=== PATIENT | male | born 1945 | race Caucasian/White ===

== ENCOUNTER → 2018-01-09 09:42 | Outpatient (CLI) | payer MEDICARE, OTHER, SELFPAY ==
[2018-01-09 10:45] LABS: Uric Acid 6.1 mg/dL (3.5-8.5)
== END ==
PROVIDERS: Visit Provider Podiatrist
DX: G62.9 Polyneuropathy, unspecified (principal); L84 Corns and callosities; M20.41 Other hammer toe(s) (acquired), right foot; S90.222A Contusion of left lesser toe(s) with damage to nail, initial encounter
CPT/HCPCS: 36415; 84550

== ENCOUNTER → 2018-01-11 10:37 | Outpatient (CLI) | payer MEDICARE, OTHER, SELFPAY ==
[2018-01-11 10:59] LABS: Add Manual Diff / Slide Review NO; Basophils Percent Auto 0.7 % (0-2); Hematocrit 41.4 % (41-53); Hemoglobin 14.1 g/dL (13.5-17.5); Lymphocytes Percent Auto 33.7 % (25-40); Mean Corpuscular HGB Conc 34.2 % (30-36); Mean Corpuscular Hemoglobin 30.6 PG (26-34); Mean Corpuscular Volume 89.4 fL (80-100); Monocytes Percent Auto 13.2 % (3-14); Neutrophils Absolute Auto 2700 /uL (3000-5900); Neutrophils Percent Auto 49.4 % (50-75); Platelet Count 259 X10^3/uL (150-400); Red Blood Cell Count 4.63 X10^6/uL (4.5-5.9); Red Cell Distribution Width 14.2 % (11.6-14.8); White Blood Cell Count 5.5 X10^3/uL (4.5-11.0)
[2018-01-11 11:08] LABS: Hemoglobin A1C% w Est Avg Glu 5.5 % (4.0-6.0)
[2018-01-11 11:12] LABS: Chloride 101 mmol/L (98-107); HEMOLYSIS 32 (0-50); Potassium 4.5 mmol/L (3.4-5.1); Sodium 140 mmol/L (137-145)
[2018-01-11 11:21] LABS: Erythrocyte Sedimentation Rate 20 MM/HR (0-15)
[2018-01-11 11:39] LABS: Alanine Aminotransferase 46 IU/L (21-72); Alkaline Phosphatase 52 U/L (38-126); Aspartate Aminotransferase 20 IU/L (17-59); BUN Creatinine Ratio 16.7 (6-22); Bilirubin Total 0.6 mg/dL (0.2-1.3); Blood Urea Nitrogen 15 mg/dL (9-20); Calcium 9.9 mg/dL (8.4-10.2); Carbon Dioxide 29 mmol/L (22-32); Estimated Glomerular Filt Rate > 60.0 mL/min (>60); Glucose 95 mg/dL (80-110)
[2018-01-11 11:46] LABS: Albumin 4.3 g/dL (3.5-5.0); Albumin Globulin Ratio 1.5 (1.0-2.8); Globulin 2.9 g/dL (1.7-4.1)
[2018-01-11 11:48] LABS: Total Protein 7.2 g/dL (6.3-8.2)
== END ==
PROVIDERS: Visit Provider Podiatrist
DX: G62.9 Polyneuropathy, unspecified (principal); L84 Corns and callosities; M20.41 Other hammer toe(s) (acquired), right foot; S90.222A Contusion of left lesser toe(s) with damage to nail, initial encounter; S90.222D Contusion of left lesser toe(s) with damage to nail, subsequent encounter
CPT/HCPCS: 36415; 80053; 83036; 85025; 85651; 87070; 87075; 87077; 87147; 87186; 87205

== ENCOUNTER → 2018-08-19 14:47 | Outpatient (CLI) | payer MEDICARE, OTHER, SELFPAY ==
--- NOTE | 2018-08-19 | DI.RAD.S_ITS ---
PROCEDURE: XR CHEST 2V INDICATIONS: PROLONGED COUGH AND EDEMA TECHNIQUE: 2 views of the chest were acquired. COMPARISON: None. FINDINGS: Surgical changes and devices: None. Lungs and pleura: There are likely small bilateral pleural effusions and atelectasis or consolidation at the bilateral lung bases. There is mild interstitial prominence bilaterally. No pneumothorax. Mediastinum: Mediastinal contours are normal. Heart size is normal. Bones and chest wall: Marked anterior wedging of the mid thoracic spine results in focal, severe kyphosis. Soft tissues appear unremarkable. IMPRESSION: 1. Pleural effusions, basilar atelectasis or consolidation and pulmonary interstitial markings suggesting fluid overload. 2. Severe kyphosis of the midthoracic spine. Dictated by: Evelina Salas M.D. on 08/19/2018 at 15:35 Approved by: Evelina Salas M.D. on 08/19/2018 at 15:36
[2018-08-19 16:09] LABS: Add Manual Diff / Slide Review NO; Basophils Absolute Auto 0 /uL (0-100); Basophils Percent Auto 0.3 % (0-2); Eosinophils Absolute Auto 0 /uL (0-450); Eosinophils Percent Auto 0.4 % (2-4); Hematocrit 40.8 % (41-53); Hemoglobin 13.6 g/dL (13.5-17.5); Lymphocytes Absolute Auto 1900 /uL (1100-4500); Mean Corpuscular HGB Conc 33.3 % (30-36); Mean Corpuscular Hemoglobin 29.7 PG (26-34); Mean Corpuscular Volume 89.1 fL (80-100); Monocytes Absolute Auto 1300 /uL (0-900); Monocytes Percent Auto 11.2 % (3-14); Neutrophils Absolute Auto 8400 /uL (1500-7000); Neutrophils Percent Auto 72.1 % (50-75); Platelet Count 342 X10^3/uL (150-400); Red Blood Cell Count 4.58 X10^6/uL (4.5-5.9); Red Cell Distribution Width 14.9 % (11.6-14.8); White Blood Cell Count 11.7 X10^3/uL (4.5-11.0)
[2018-08-19 16:33] LABS: BUN Creatinine Ratio 17.3 (6-22); Blood Urea Nitrogen 19 mg/dL (9-20); Calcium 9.7 mg/dL (8.4-10.2); Carbon Dioxide 21 mmol/L (22-32); Chloride 92 mmol/L (98-107); Estimated Glomerular Filt Rate > 60.0 mL/min (>60); Glucose 96 mg/dL (80-110); HEMOLYSIS < 15 (0-50); Potassium 5.3 mmol/L (3.4-5.1); Sodium 125 mmol/L (137-145)
== END ==
PROVIDERS: PCP Family Medicine; Visit Provider Family Medicine
DX: R05 Cough (principal); R60.9 Edema, unspecified; J84.9 Interstitial pulmonary disease, unspecified; M40.294 Other kyphosis, thoracic region
CPT/HCPCS: 36415; 71046; 80048; 85025

== ENCOUNTER → 2018-08-29 11:27 | Outpatient (CLI) | payer MEDICARE, OTHER, SELFPAY ==
[2018-08-29 12:24] LABS: BUN Creatinine Ratio 18.3 (6-22); Blood Urea Nitrogen 22 mg/dL (9-20); Calcium 9.2 mg/dL (8.4-10.2); Carbon Dioxide 26 mmol/L (22-32); Chloride 95 mmol/L (98-107); Estimated Glomerular Filt Rate 59.3 mL/min (>60); Glucose 117 mg/dL (80-110); HEMOLYSIS < 15 (0-50); Sodium 134 mmol/L (137-145)
== END ==
PROVIDERS: Visit Provider Internal Medicine
DX: I50.22 Chronic systolic (congestive) heart failure (principal)
CPT/HCPCS: 36415; 80048

== ENCOUNTER → 2018-12-13 13:37 | Outpatient (CLI) | payer MEDICARE, OTHER, SELFPAY ==
[2018-12-13 15:57] LABS: Blood Urea Nitrogen 27 mg/dL (9-20); Calcium 9.6 mg/dL (8.4-10.2); Carbon Dioxide 28 mmol/L (22-32); Chloride 103 mmol/L (98-107); Estimated Glomerular Filt Rate > 60.0 mL/min (>60); Glucose 78 mg/dL (80-110); HEMOLYSIS < 15 (0-50); Potassium 4.1 mmol/L (3.4-5.1); Sodium 139 mmol/L (137-145)
[2018-12-13 16:28] LABS: TSH w/ Reflex to FT4 0.67 uIU/mL (0.47-4.68)
== END ==
DX: I50.22 Chronic systolic (congestive) heart failure (principal); I48.2 Chronic atrial fibrillation
CPT/HCPCS: 36415; 80048; 84443

== ENCOUNTER → 2019-06-27 13:31 | Outpatient (CLI) | payer MEDICARE, OTHER, SELFPAY ==
[2019-06-27 13:59] LABS: Hematocrit 41.8 % (41-53); Hemoglobin 14.3 g/dL (13.5-17.5); Mean Corpuscular HGB Conc 34.2 % (30-36); Mean Corpuscular Hemoglobin 31.8 PG (26-34); Mean Corpuscular Volume 92.9 fL (80-100); Platelet Count 220 X10^3/uL (150-400); Red Blood Cell Count 4.49 X10^6/uL (4.5-5.9); Red Cell Distribution Width 13.4 % (11.6-14.8); White Blood Cell Count 6.1 X10^3/uL (4.5-11.0)
[2019-06-27 15:55] LABS: Alanine Aminotransferase 20 IU/L (<50); Albumin 4.2 g/dL (3.5-5.0); Albumin Globulin Ratio 1.7 (1.0-2.8); Alkaline Phosphatase 31 U/L (38-126); Aspartate Aminotransferase 25 IU/L (17-59); Bilirubin Total 0.9 mg/dL (0.2-1.3); Blood Urea Nitrogen 25 mg/dL (9-20); Calcium 10.1 mg/dL (8.4-10.2); Carbon Dioxide 28 mmol/L (22-32); Chloride 103 mmol/L (98-107); Estimated Glomerular Filt Rate > 60.0 mL/min (>60); Globulin 2.5 g/dL (1.7-4.1); Glucose 91 mg/dL (80-110); HEMOLYSIS < 15 (0-50); Potassium 4.4 mmol/L (3.4-5.1); Sodium 138 mmol/L (137-145); Total Protein 6.7 g/dL (6.3-8.2)
== END ==
PROVIDERS: Visit Provider Nurse Practitioner
DX: I50.22 Chronic systolic (congestive) heart failure (principal); I42.8 Other cardiomyopathies; Z79.01 Long term (current) use of anticoagulants
CPT/HCPCS: 36415; 80053; 85027

== ENCOUNTER → 2019-07-18 11:02 | Outpatient (CLI) | payer MEDICARE, OTHER, SELFPAY ==
[2019-07-18 12:50] LABS: Hemoglobin A1C% w Est Avg Glu 5.2 % (4.0-6.0)
[2019-07-18 13:09] LABS: Cortisol Random 8.16 ug/dL; Prostate Specific Antigen 1.24 ng/mL (0.10-4.00)
[2019-07-18 13:20] LABS: Thyroid Stimulating Hormone 0.69 uIU/mL (0.47-4.68)
[2019-07-22 12:51] LABS: Dehydroepiandrosterone Sulfate 181 mcg/dL (5-253)
== END ==
PROVIDERS: Visit Provider Family Medicine
DX: I42.9 Cardiomyopathy, unspecified (principal); I48.19 Other persistent atrial fibrillation; I50.20 Unspecified systolic (congestive) heart failure; I95.2 Hypotension due to drugs; N40.1 Benign prostatic hyperplasia with lower urinary tract symptoms; E11.9 Type 2 diabetes mellitus without complications
CPT/HCPCS: 36415; 82533; 82627; 83036; 84153; 84403; 84443

== ENCOUNTER → 2020-05-14 15:02 | Outpatient (CLI) | payer MEDICARE, OTHER, SELFPAY ==
[2020-05-14 16:45] LABS: Add Manual Diff / Slide Review NO; Basophils Absolute Auto 0 /uL (0-100); Basophils Percent Auto 0.7 % (0-2); Eosinophils Absolute Auto 100 /uL (0-450); Eosinophils Percent Auto 2.3 % (2-4); Hematocrit 43.1 % (41-53); Hemoglobin 15.1 g/dL (13.5-17.5); Lymphocytes Absolute Auto 2000 /uL (1100-4500); Lymphocytes Percent Auto 32.9 % (25-40); Mean Corpuscular HGB Conc 35.1 % (30-36); Mean Corpuscular Hemoglobin 32.5 PG (26-34); Mean Corpuscular Volume 92.5 fL (80-100); Monocytes Absolute Auto 600 /uL (0-900); Monocytes Percent Auto 9.5 % (3-14); Neutrophils Absolute Auto 3300 /uL (1500-7000); Neutrophils Percent Auto 54.6 % (50-75); Platelet Count 223 X10^3/uL (150-400); Red Blood Cell Count 4.66 X10^6/uL (4.5-5.9)
[2020-05-14 19:17] LABS: Alanine Aminotransferase 17 IU/L (<50); Albumin 4.6 g/dL (3.5-5.0); Albumin Globulin Ratio 1.8 (1.0-2.8); Alkaline Phosphatase 41 U/L (38-126); Aspartate Aminotransferase 15 IU/L (17-59); BUN Creatinine Ratio 23.5 (6-22); Bilirubin Total 0.8 mg/dL (0.2-1.3); Blood Urea Nitrogen 27 mg/dL (9-20); Calcium 10.1 mg/dL (8.4-10.2); Carbon Dioxide 30 mmol/L (22-32); Chloride 101 mmol/L (98-107); Estimated Glomerular Filt Rate > 60.0 mL/min (>60); Globulin 2.5 g/dL (1.7-4.1); Glucose 87 mg/dL (80-110); HEMOLYSIS < 15 (0-50); Magnesium 2.3 mg/dL (1.6-2.3); Potassium 5.1 mmol/L (3.4-5.1); Sodium 138 mmol/L (137-145); Total Protein 7.1 g/dL (6.3-8.2)
== END ==
PROVIDERS: Referring Provider Family Medicine; Visit Provider Family Medicine
DX: I50.22 Chronic systolic (congestive) heart failure (principal); I48.20 Chronic atrial fibrillation, unspecified
CPT/HCPCS: 36415; 80053; 83735; 85025

== ENCOUNTER → 2020-09-08 16:33 | Outpatient (CLI) | payer MEDICARE, OTHER, SELFPAY ==
[2020-09-08 18:16] LABS: Fibrinogen 268 mg/dL (211-428); INR 1.2 (0.9-1.3); Prothrombin Time 14.3 SECONDS (10.1-12.7)
[2020-09-08 18:18] LABS: PTT Partial Thromboplastin Tim 32 SECONDS (26.4-36.2)
[2020-09-08 18:24] LABS: Add Manual Diff / Slide Review NO; Basophils Absolute Auto 0 /uL (0-100); Basophils Percent Auto 0.7 % (0-2); Eosinophils Absolute Auto 200 /uL (0-450); Eosinophils Percent Auto 3.1 % (2-4); Hemoglobin 14.1 g/dL (13.5-17.5); Lymphocytes Absolute Auto 1900 /uL (1100-4500); Lymphocytes Percent Auto 28.7 % (25-40); Mean Corpuscular HGB Conc 34.4 % (30-36); Mean Corpuscular Hemoglobin 31.7 PG (26-34); Mean Corpuscular Volume 92.4 fL (80-100); Monocytes Absolute Auto 700 /uL (0-900); Monocytes Percent Auto 10.8 % (3-14); Neutrophils Absolute Auto 3700 /uL (1500-7000); Neutrophils Percent Auto 56.7 % (50-75); Platelet Count 229 X10^3/uL (150-400); Red Blood Cell Count 4.44 X10^6/uL (4.5-5.9); Red Cell Distribution Width 13.9 % (11.6-14.8); White Blood Cell Count 6.5 X10^3/uL (4.5-11.0)
[2020-09-08 18:39] LABS: Alanine Aminotransferase 17 IU/L (<50); Albumin 4.2 g/dL (3.5-5.0); Albumin Globulin Ratio 1.6 (1.0-2.8); Alkaline Phosphatase 33 U/L (38-126); Aspartate Aminotransferase 22 IU/L (17-59); BUN Creatinine Ratio 20.8 (6-22); Bilirubin Total 0.6 mg/dL (0.2-1.3); Blood Urea Nitrogen 25 mg/dL (9-20); Calcium 9.9 mg/dL (8.4-10.2); Carbon Dioxide 27 mmol/L (22-32); Chloride 102 mmol/L (98-107); Globulin 2.6 g/dL (1.7-4.1); Glucose 88 mg/dL (80-110); HEMOLYSIS < 15 (0-50); Lactate Dehydrogenase 304 U/L (313-618); Potassium 4.3 mmol/L (3.4-5.1); Sodium 133 mmol/L (137-145); Total Protein 6.8 g/dL (6.3-8.2)
[2020-09-08 18:41] LABS: Hemoglobin A1C% w Est Avg Glu 5.2 % (4.0-6.0)
[2020-09-08 18:48] LABS: High Sensitivity CRP - Cardiac 0.4 mg/L (1.0-3.0); Prealbumin 27.5 mg/dL (17.6-36.0)
[2020-09-08 18:56] LABS: Free T3, Triiodothyronine Free 2.94 pg/mL (2.77-5.27); Free T4, Direct Thyroxine 1.13 ng/dL (0.78-2.19)
[2020-09-08 19:07] LABS: Estradiol, Total 30.5 pg/mL
[2020-09-08 19:09] LABS: Erythrocyte Sedimentation Rate 3 MM/HR (0-15); Thyroid Stimulating Hormone 0.561 uIU/mL (0.47-4.68)
[2020-09-08 19:11] LABS: Ferritin 70 ng/mL (18-464)
[2020-09-08 20:35] LABS: Vitamin D 25 Hydroxy (D3) 90.2 ng/mL (30.0-100.0)
[2020-09-10 04:51] LABS: Homocysteine 14.1 umol/L (0.0-19.2)
[2020-09-10 05:46] LABS: Sex Hormone Binding Globulin 70.3 nmol/L (19.3-76.4)
[2020-09-15 04:36] LABS: Testosterone % Fr + Wkly bound 12.8 % (9.0-46.0); Testosterone Fr+Wkly bound 40.4 ng/dL (40.0-250.0); Testosterone, Total 315.3 ng/dL (264.0-916.0)
== END ==
PROVIDERS: Referring Provider Preventive Medicine Public Health & General Preventive Medicine; Visit Provider Preventive Medicine Public Health & General Preventive Medicine
DX: I49.9 Cardiac arrhythmia, unspecified (principal); E34.9 Endocrine disorder, unspecified; R79.1 Abnormal coagulation profile; M19.93 Secondary osteoarthritis, unspecified site; E03.8 Other specified hypothyroidism; N40.0 Benign prostatic hyperplasia without lower urinary tract symptoms; R53.83 Other fatigue
CPT/HCPCS: 36415; 80053; 82306; 82627; 82670; 82728; 83036; 83090; 83615; 84134; 84153; 84270; 84403; 84439; 84443; 84481; 85025; 85384; 85610; 85651; 85730; 86140

== ENCOUNTER → 2021-04-19 15:45 | Outpatient (CLI) | payer MEDICARE, OTHER, SELFPAY ==
--- NOTE | 2021-04-19 | DI.MRI.S_ITS ---
PROCEDURE: MR KNEE LT WO CON INDICATIONS: Pain in left knee TECHNIQUE: Noncontrast sagittal PD fast spin echo and T2 fast spin echo with fat saturation, sagittal 3-D FLASH with fat saturation; coronal T1 spin echo and PD fast spin echo with fat saturation, and axial PD fast spin echo with fat saturation through the knee. COMPARISON: None. FINDINGS: Menisci: Medial meniscus: Ill-defined tear involving the posterior horn and body with partial extrusion. Abnormal signal extends to the undersurface and there is marked truncation of the free margin Lateral meniscus: Macerated circumferential tear involving the anterior horn, body and posterior horn. There is near complete extrusion. Cruciate ligaments: Anterior cruciate ligament: Intact. Posterior cruciate ligament: Intact. Medial structures: The medial collateral ligament: There is medial bowing of the medial collateral ligament, with mild internal signal changes and no complete rupture. There is adjacent soft tissue edema. The appearance could reflect reactive changes to medial compartment pathology, versus low-grade sprain of the MCL. Semimembranosus tendon: Insertional tendinopathy and thickening. Visualized pes anserinus tendons: Intact. Bursal fluid: none. Lateral structures: The lateral collateral ligament demonstrates thickening and intrasubstance signal change in keeping with low grade sprain, statistically chronic, although technically age indeterminate. Biceps femoris tendon appears intact. Popliteus tendon grossly unremarkable. Iliotibial band appears intact. Anterior structures: Quadriceps tendon: Distal tendinopathy and thickening. Medial patellofemoral ligament: Intact. Lateral patellofemoral ligament: Partial-thickness tear of the patellar attachment. There is marked thickening and background intrasubstance signal changes. Patellar tendon: Mild tendinopathy. Anterior soft tissues: Prepatellar and superficial infrapatellar subcutaneous edema/fluid. Deep infrapatellar region: Normal. Bones and cartilage: Marrow: No focal marrow contusion or discrete low signal fracture line. Degenerative cystic change present at the base of the tibial eminence. Medial compartment: Diffuse partial-thickness loss of the femoral cartilage. No definite focal tibial cartilage defect. Lateral compartment: Diffuse partial-thickness loss of the tibial cartilage. Surface fraying partial-thickness loss of the central weight-bearing femoral cartilage. Patellofemoral compartment: Diffuse partial-thickness loss of the patellar cartilage. Surface fraying of the femoral trochlear cartilage. Partial-thickness loss of the posterior non weight-bearing cartilage of the medial femoral condyle also noted on axial pulse sequences. Joint space: Effusion: Moderate joint effusion Popliteal fossa: Small 1 cm Leo's cyst. Multiloculated posterior ganglion at the tibiofibular articulation. For example image 02/04. Loose bodies: None. IMPRESSION: Medial meniscal tear with partial extrusion. Adjacent MCL changes as above. Lateral meniscal circumferential macerated tear with near complete extrusion. Quadriceps and patellar tendinopathy with adjacent fluid and edema. Partial rupture of the lateral patellofemoral ligament. Moderate joint effusion Small Leo's cyst Posterior ganglion cyst at the proximal tibiofibular articulation. Dictated by: Rory Walls M.D. on 04/20/2021 at 9:01 Approved by: Rory Walls M.D. on 04/20/2021 at 9:11
== END ==
PROVIDERS: Referring Provider Family Medicine; Visit Provider Family Medicine
DX: M25.562 Pain in left knee (principal); S83.242A Other tear of medial meniscus, current injury, left knee, initial encounter; S83.282A Other tear of lateral meniscus, current injury, left knee, initial encounter; S86.812A Strain of other muscle(s) and tendon(s) at lower leg level, left leg, initial encounter; M25.462 Effusion, left knee; M71.22 Synovial cyst of popliteal space [Baker], left knee
CPT/HCPCS: 73721

== ENCOUNTER → 2021-07-13 13:12 | Outpatient (CLI) | payer MEDICARE, OTHER, SELFPAY ==
[2021-07-13 14:19] LABS: Add Manual Diff / Slide Review NO; Basophils Absolute Auto 0 /uL (0-100); Basophils Percent Auto 0.7 % (0-2); Eosinophils Absolute Auto 100 /uL (0-450); Hematocrit 41.8 % (41-53); Hemoglobin 14.2 g/dL (13.5-17.5); Lymphocytes Absolute Auto 1800 /uL (1100-4500); Lymphocytes Percent Auto 30.2 % (25-40); Mean Corpuscular HGB Conc 33.9 % (30-36); Mean Corpuscular Hemoglobin 30.8 PG (26-34); Mean Corpuscular Volume 90.9 fL (80-100); Monocytes Absolute Auto 600 /uL (0-900); Monocytes Percent Auto 10.1 % (3-14); Neutrophils Absolute Auto 3300 /uL (1500-7000); Platelet Count 263 X10^3/uL (150-400); Red Cell Distribution Width 14.3 % (11.6-14.8); White Blood Cell Count 5.9 X10^3/uL (4.5-11.0)
[2021-07-13 14:42] LABS: Alanine Aminotransferase 19 IU/L (<50); Albumin 4.4 g/dL (3.5-5.0); Albumin Globulin Ratio 1.9 (1.0-2.8); Alkaline Phosphatase 36 U/L (38-126); Aspartate Aminotransferase 21 IU/L (17-59); BUN Creatinine Ratio 18.2 (6-22); Bilirubin Total 0.8 mg/dL (0.2-1.3); Blood Urea Nitrogen 20 mg/dL (9-20); Carbon Dioxide 26 mmol/L (22-32); Chloride 101 mmol/L (98-107); Cholesterol 181 mg/dL (140-199); Estimated Glomerular Filt Rate > 60.0 mL/min (>60); Globulin 2.3 g/dL (1.7-4.1); Glucose 101 mg/dL (80-110); HDL Cholesterol 67 mg/dL (40-60); HEMOLYSIS < 15 (0-50); LDL Cholesterol Calculated 105 mg/dL (<100); Magnesium 2.1 mg/dL (1.6-2.3); Potassium 4.7 mmol/L (3.4-5.1); Sodium 135 mmol/L (137-145); Total Protein 6.7 g/dL (6.3-8.2); Triglycerides 44 mg/dL (35-150)
[2021-07-13 15:08] LABS: Thyroid Stimulating Hormone 0.928 uIU/mL (0.47-4.68)
[2021-07-13 15:10] LABS: Prostate Specific Antigen 1.68 ng/mL (0.10-4.00)
[2021-07-13 15:46] LABS: Folate > 20.0 ng/mL (2.76-20.0); Vitamin B12 939 pg/mL (239-931)
[2021-07-13 19:43] LABS: Vitamin D 25 Hydroxy (D3) 87.5 ng/mL (30.0-100.0)
== END ==
PROVIDERS: PCP Family Medicine; Referring Provider Family Medicine; Visit Provider Family Medicine
DX: I42.6 Alcoholic cardiomyopathy (principal); I48.20 Chronic atrial fibrillation, unspecified; N40.0 Benign prostatic hyperplasia without lower urinary tract symptoms; E78.5 Hyperlipidemia, unspecified; E55.9 Vitamin D deficiency, unspecified
CPT/HCPCS: 36415; 80053; 80061; 82306; 82607; 82746; 83735; 84153; 84443; 85025

== ENCOUNTER → 2021-11-15 08:56 | Outpatient (CLI) | payer MEDICARE, OTHER, SELFPAY ==
[2021-11-15 12:39] LABS: Testosterone 405 ng/dL (71.8-623)
== END ==
PROVIDERS: PCP Family Medicine; Referring Provider Family Medicine; Visit Provider Family Medicine
DX: E29.1 Testicular hypofunction (principal)
CPT/HCPCS: 36415; 84403

== ENCOUNTER → 2021-11-16 08:54 | Outpatient (CLI) | payer MEDICARE, OTHER, SELFPAY ==
[2021-11-16 10:32] LABS: Testosterone 340 ng/dL (71.8-623)
== END ==
PROVIDERS: PCP Family Medicine; Referring Provider Family Medicine; Visit Provider Family Medicine
DX: E29.1 Testicular hypofunction (principal)
CPT/HCPCS: 36415; 84403

== ENCOUNTER 2021-11-21 14:17 | Emergency (ER) | payer MEDICARE, OTHER, SELFPAY ==
[2021-11-21 14:24] VITALS: PULSE 94; RESP 20; TEMP 36.6; O2SAT 99
--- NOTE | 2021-11-21 14:29 | DI.RAD.S_ITS ---
PROCEDURE: XR KNEE RT 3V INDICATIONS: pain TECHNIQUE: 3 views of the knee were acquired. COMPARISON: None. FINDINGS: Bones: No fractures or dislocations. No suspicious bony lesions. There is mild femorotibial compartment narrowing and small tricompartmental osteophytes. There is a patellar enthesophyte. Soft tissues: No joint effusion. No suspicious soft tissue calcifications. IMPRESSION: Degenerative change. No acute radiographic findings. Dictated by: Evelina Salas M.D. on 11/21/2021 at 15:13 Approved by: Evelina Salas M.D. on 11/21/2021 at 15:14
[2021-11-21 18:10] LABS: Add Manual Diff / Slide Review NO; Basophils Absolute Auto 0 /uL (0-100); Basophils Percent Auto 0.5 % (0-2); Eosinophils Absolute Auto 100 /uL (0-450); Eosinophils Percent Auto 1.4 % (2-4); Hemoglobin 13.7 g/dL (13.5-17.5); Lymphocytes Absolute Auto 1500 /uL (1100-4500); Lymphocytes Percent Auto 18.2 % (25-40); Mean Corpuscular HGB Conc 34.3 % (30-36); Mean Corpuscular Hemoglobin 31.2 PG (26-34); Mean Corpuscular Volume 90.7 fL (80-100); Monocytes Absolute Auto 1000 /uL (0-900); Monocytes Percent Auto 13.1 % (3-14); Neutrophils Absolute Auto 5300 /uL (1500-7000); Neutrophils Percent Auto 66.8 % (50-75); Platelet Count 199 X10^3/uL (150-400); Red Blood Cell Count 4.41 X10^6/uL (4.5-5.9); Red Cell Distribution Width 13.9 % (11.6-14.8)
[2021-11-21 18:29] LABS: Alanine Aminotransferase 20 IU/L (<50); Albumin 4.5 g/dL (3.5-5.0); Albumin Globulin Ratio 1.6 (1.0-2.8); Alkaline Phosphatase 36 U/L (38-126); Aspartate Aminotransferase 25 IU/L (17-59); Blood Urea Nitrogen 22 mg/dL (9-20); Calcium 9.4 mg/dL (8.4-10.2); Carbon Dioxide 25 mmol/L (22-32); Chloride 101 mmol/L (98-107); Estimated Glomerular Filt Rate > 60 mL/min (>60); Globulin 2.9 g/dL (1.7-4.1); Glucose 88 mg/dL (80-110); HEMOLYSIS < 15 (0-50); Sodium 135 mmol/L (137-145); Total Protein 7.4 g/dL (6.3-8.2)
[2021-11-21] MEDS: ACETAMINOPHEN 325 MG TABLET 975 MG PO (18:29)
[2021-11-21 18:36] LABS: NT-proBNP (BNP-Adult 18+) 1600 pg/mL (<450)
[2021-11-21 18:44] LABS: Procalcitonin 0.05 ng/mL (<0.5)
[2021-11-21 18:48] LABS: Appearance Urine UA Slightly Cloudy; Bilirubin Urine UA NEGATIVE (NEGATIVE); Color Urine UA YELLOW; Glucose Urine UA NEGATIVE (Negative); Ketones Urine UA NEGATIVE (NEGATIVE); Leukocyte Esterase Urine UA 3+ (NEGATIVE); Nitrite Urine UA NEGATIVE (Negative); Occult Blood Urine UA TRACE-LYSED (Negative); Protein Urine UA NEGATIVE (Negative); Specific Gravity Urine UA <=1.005 (1.000-1.035); Urobilinogen Urine UA 0.2 E.U./dL (0.2)
[2021-11-21 18:54] LABS: COVID19 -Nasal RAPID Negative (Negative)
[2021-11-21 18:56] LABS: Bacteria Urine Few (2-10); Culture Indicated Urine Specimen Cultured; RBC Urine 0-1/HPF (0-5/HPF); Squamous Epithelial Cell Urine 0-1 /HPF (0-5/HPF); WBC Urine 10-30/HPF (0-5/HPF)
[2021-11-21] MEDS: TRIMETH/SULFA 160/800 (DS) TABLET 1 TAB PO (19:02)
[2021-11-21 19:22] VITALS: BP 158/78; PULSE 80; RESP 18; O2SAT 99
--- NOTE | 2021-11-21 20:32 | ED.LOWEXIN ---
HPI - Extremity Injury (Lower) <Kimmy Roblero, [facility] - Last Filed: 11/21/21 20:43> General Chief Complaint: Extremity Injury, Lower Stated Complaint: Wants MRI on knee and labs Time Seen by Provider: 11/21/21 16:48 Source: patient Mode of arrival: Ambulatory History of Present Illness HPI Narrative: This a 76-year-old male with history of AFib on Xarelto, CHF, and some arthritis in his bilateral knees which have been bothering him for some time. Patient presents to the emergency department today for feeling of wobbly knees yesterday when he was out for a walk, he states felt unsteady and had to sit write down. He states that he felt tired and weak, which is abnormal for him. He denies having a fever, states that he was up frequently last night to urinate, complains of ongoing knee pain but no known injury. He denies any isolated weakness, states that he takes multiple antihypertensives for his heart, maybe he had some low blood pressure yesterday. Patient states that he does not normally urinate as frequently as he did last night, he states he feels tired today, denies any abdominal pain or back pain, denies any fever, or generalized weakness. He states that his knees feeling wobbly was more yesterday than it is today but he has surgery for an inguinal hernia coming [place] [address] Choi and he wanted to make sure that he was safe for this because he did not feel right. Related Data Home Medications Medication Instructions Recorded Confirmed metoprolol succinate 25 mg 25 mg PO BID 11/22/21 11/22/21 tablet,extended release 24 hr rivaroxaban 20 mg tablet (Xarelto) 20 mg PO DAILY 11/22/21 11/22/21 sacubitril 24 mg-valsartan 26 mg 1 tab PO BID 11/22/21 11/22/21 tablet (Entresto) Previous Rx's Medication Instructions Recorded diclofenac sodium 1 % topical gel 2 g TOPICAL QID PRN #100 g 11/21/21 (Voltaren Arthritis Pain) sulfamethoxazole 800 1 tab PO BID 5 Days #10 tab 11/21/21 mg-trimethoprim 160 mg tablet (Bactrim DS) Allergies Allergy/AdvReac Type Severity Reaction Status Date / Time No Known Drug Allergies Allergy Unverified 11/03/21 15:48 Review of Systems <ASYA Torres - Last Filed: 11/21/21 20:43> Review of Systems Narrative: General: denies fever, chills, malaise, sweats, fatigue Head/Neck: denies headache, neck pain, dizziness Eyes: denies visual changes, eye pain Cardio: denies chest pain, palpitations, edema Respiratory: denies dyspnea, cough, orthopnea GI: denies abdominal pain, nausea, vomiting, or diarrhea : denies dysuria, hematuria, urinary retention, endorses urinary frequency, denies any incontinence MSK: Complains of bilateral knee pain, right greater than left, denies any muscle weakness Skin: denies rash, itching, skin lesions or other Neuro: denies numbness, tingling Patient History <ASYA Torres - Last Filed: 11/21/21 20:43> Medical History (Updated 11/22/21 @ 08:31 by Ramona Downey RN) Afib Congestive heart failure Enlarged prostate Hernia Skin cancer Surgical History (Updated 11/22/21 @ 08:37 by Ramona Downey RN) History of appendectomy (1967) History of hernia surgery (1949) Family History Father Heart disease Sister Breast cancer Mother Melanoma Social History marital status: household members: spouse lives independently: Yes Smoking Status: Never smoker alcohol intake: current Smoking Status: Never smoker Exam <ASYA Torres - Last Filed: 11/21/21 20:43> Narrative Exam Narrative: Independently reviewed vitals signs and nursing notes. General: cooperative, comfortable, in no acute distress, well developed and well groomed, pleasant, tall, ambulatory with wheelchair or walker without difficulty Head: atraumatic, symmetrical facial expressions Neck: supple, atraumatic, without lymphadenopathy. Eyes: pupils equal round and reactive, EOMI, conjunctiva normal Nose: nares patent, no rhinorrhea Mouth/Throat: uvula midline, moist mucus membranes Cardiovascular: regular rate and rhythm, no peripheral edema, warm extremities Respiratory: normal effort, able to speak in complete sentences, no audible wheezing, stridor, or rales. No retractions or tachypnea. GI: abdomen soft, nontender to palpation, nondistended, no masses, no exquisite tenderness with exam, without guarding or rebound. MSK: moves all extremities, ambulatory w/steady gait, neurovascularly intact, no weakness, no dependent edema, no obvious knee effusion or injury, no wounds Skin: brisk capillary refill, no rash, no erythema Neuro: normal speech and cognition, A&O x3, normal tone Psych: mental status is grossly normal, congruent mood, normal affect, pleasant and cooperative Initial Vital Signs Initial Vital Signs: Vital Signs Temperature 97.8 F 11/21/21 14:24 Pulse Rate 94 H 11/21/21 14:24 Respiratory Rate 20 11/21/21 14:24 Pulse Oximetry 99 11/21/21 14:24 <Ronit Newman DO - Last Filed: 11/22/21 19:38> Initial Vital Signs Initial Vital Signs: Vital Signs Temperature 97.8 F 11/21/21 14:24 Pulse Rate 94 H 11/21/21 14:24 Respiratory Rate 20 11/21/21 14:24 Pulse Oximetry 99 11/21/21 14:24 Course <ASYA Torres - Last Filed: 11/21/21 20:43> Orders Ordered: Discontinued Medications Acetaminophen (Acetaminophen 325 Mg Tablet) 975 mg PO NOW ONE Stop: 11/21/21 17:18 Last Admin: 11/21/21 18:29 Dose: 975 mg Documented by: HARPER Trimethoprim/Sulfamethoxazole (Trimeth/Sulfa 160/800 (Ds) Tablet) 1 tab PO NOW ONE Stop: 11/21/21 18:55 Last Admin: 11/21/21 19:02 Dose: 1 tab Documented by: FARHAN Vital Signs Vital signs: Vital Signs - 8 hr 11/21/21 14:24 11/21/21 19:22 Temperature 97.8 F Pulse Rate 94 H 80 Respiratory Rate 20 18 Blood Pressure 158/78 H Pulse Oximetry 99 99 <Ronit Newman DO - Last Filed: 11/22/21 19:38> Orders Ordered: Discontinued Medications Acetaminophen (Acetaminophen 325 Mg Tablet) 975 mg PO NOW ONE Stop: 11/21/21 17:18 Last Admin: 11/21/21 18:29 Dose: 975 mg Documented by: HARPER Trimethoprim/Sulfamethoxazole (Trimeth/Sulfa 160/800 (Ds) Tablet) 1 tab PO NOW ONE Stop: 11/21/21 18:55 Last Admin: 11/21/21 19:02 Dose: 1 tab Documented by: FARHAN Vital Signs Vital signs: Vital Signs - 8 hr 11/21/21 14:24 11/21/21 19:22 Temperature 97.8 F Pulse Rate 94 H 80 Respiratory Rate 20 18 Blood Pressure 158/78 H Pulse Oximetry 99 99 MDM - Extremity Injury (Lower) <Kimmy Roblero, [facility] - Last Filed: 11/21/21 20:43> Lab Data Result diagrams: 11/21/21 18:00 11/21/21 18:00 Labs: Lab Results 11/21/21 11/21/21 11/21/21 Range/Units 18:00 18:00 18:00 WBC 8.0 (4.5-11.0) X10^3/uL RBC 4.41 L (4.5-5.9) X10^6/uL Hgb 13.7 (13.5-17.5) g/dL Hct 40.0 L (41-53) % MCV 90.7 (80-100) fL MCH 31.2 (26-34) PG MCHC 34.3 (30-36) % RDW 13.9 (11.6-14.8) % Plt Count 199 (150-400) X10^3/uL Neut % (Auto) 66.8 (50-75) % Lymph % (Auto) 18.2 L (25-40) % [place] % (Auto) 13.1 (3-14) % Eos % (Auto) 1.4 L (2-4) % Baso % (Auto) 0.5 (0-2) % Neut # (Auto) 5300 (8465-7664) /uL Lymph # (Auto) 1500 (1072-4212) /uL [place] # (Auto) 1000 H (0-900) /uL Eos # (Auto) 100 (0-450) /uL Baso # (Auto) 0 (0-100) /uL Sodium 135 L (137-145) mmol/L Potassium 4.0 (3.4-5.1) mmol/L Chloride 101 (98-107) mmol/L Carbon Dioxide 25 (22-32) mmol/L BUN 22 H (9-20) mg/dL Creatinine 1.05 (0.66-1.25) mg/dL Estimated GFR > 60 (>60) mL/min BUN/Creatinine Ratio 21.0 (6-22) Glucose 88 (80-110) mg/dL Calcium 9.4 (8.4-10.2) mg/dL Total Bilirubin 1.0 (0.2-1.3) mg/dL AST 25 (17-59) IU/L ALT 20 (<50) IU/L Alkaline Phosphatase 36 L (38-126) U/L NT-Pro-B Natriuret Pep 1600 H (<450) pg/mL Total Protein 7.4 (6.3-8.2) g/dL Albumin 4.5 (3.5-5.0) g/dL Globulin 2.9 (1.7-4.1) g/dL Albumin/Globulin Ratio 1.6 (1.0-2.8) Procalcitonin 0.05 (<0.5) ng/mL Urine Color Urine Appearance Urine pH (4.5-8.0) Ur Specific [place] (1.000-1.035) Urine Protein (Negative) Urine Glucose (UA) (Negative) g/dL Urine Ketones (NEGATIVE) Urine Occult Blood (Negative) Urine Nitrate (Negative) Urine Bilirubin (NEGATIVE) Urine Urobilinogen (0.2) E.U./dL Ur Leukocyte Esterase (NEGATIVE) Urine RBC (0-5/HPF) Urine WBC (0-5/HPF) Ur Squamous Epith Cells (0-5/HPF) Urine Bacteria (None) Ur Culture Indicated? SARS-CoV-2 (PCR) (Negative) 11/21/21 11/21/21 Range/Units 18:04 18:04 WBC (4.5-11.0) X10^3/uL RBC (4.5-5.9) X10^6/uL Hgb (13.5-17.5) g/dL Hct (41-53) % MCV (80-100) fL MCH (26-34) PG MCHC (30-36) % RDW (11.6-14.8) % Plt Count (150-400) X10^3/uL Neut % (Auto) (50-75) % Lymph % (Auto) (25-40) % [place] % (Auto) (3-14) % Eos % (Auto) (2-4) % Baso % (Auto) (0-2) % Neut # (Auto) (6174-9439) /uL Lymph # (Auto) (2178-7608) /uL [place] # (Auto) (0-900) /uL Eos # (Auto) (0-450) /uL Baso # (Auto) (0-100) /uL Sodium (137-145) mmol/L Potassium (3.4-5.1) mmol/L Chloride (98-107) mmol/L Carbon Dioxide (22-32) mmol/L BUN (9-20) mg/dL Creatinine (0.66-1.25) mg/dL Estimated GFR (>60) mL/min BUN/Creatinine Ratio (6-22) Glucose (80-110) mg/dL Calcium (8.4-10.2) mg/dL Total Bilirubin (0.2-1.3) mg/dL AST (17-59) IU/L ALT (<50) IU/L Alkaline Phosphatase (38-126) U/L NT-Pro-B Natriuret Pep (<450) pg/mL Total Protein (6.3-8.2) g/dL Albumin (3.5-5.0) g/dL Globulin (1.7-4.1) g/dL Albumin/Globulin Ratio (1.0-2.8) Procalcitonin (<0.5) ng/mL Urine Color Yellow Urine Appearance Slightly cloudy Urine pH 6.0 (4.5-8.0) Ur Specific [place] <=1.005 (1.000-1.035) Urine Protein Negative (Negative) Urine Glucose (UA) Negative (Negative) g/dL Urine Ketones Negative (NEGATIVE) Urine Occult Blood Trace-lysed (Negative) Urine Nitrate Negative (Negative) Urine Bilirubin Negative (NEGATIVE) Urine Urobilinogen 0.2 (0.2) E.U./dL Ur Leukocyte Esterase 3+ H (NEGATIVE) Urine RBC 0-1/hpf (0-5/HPF) Urine WBC 10-30/hpf H (0-5/HPF) Ur Squamous Epith Cells 0-1 /hpf (0-5/HPF) Urine Bacteria Few (2-10) H (None) Ur Culture Indicated? Specimen cultured SARS-CoV-2 (PCR) Negative (Negative) ECG Data Interpretation: EKG independently reviewed by myself and Dr. Beavers which shows ventricular rate of 92 beats per minute, atrial fibrillation regular axis and intervals. No STEMI, ST segment changes, arrhythmia, or acute ischemic changes. MDM Narrative Medical decision making narrative: This is a pleasant 76-year-old gentleman with history of AFib on Xarelto, CHF, on antihypertensives, who presents to the emergency department today with feeling of unsteadiness when he was walking yesterday and had to sit down. He has a history of osteoarthritis in his bilateral knees and thought it was due to this. When discussing this further with the patient, he states that he was up frequently urinating last night and has been feeling tired today and a little bit less energetic than usual. Opted to do lab work and check his urine for infection as he has inguinal hernia surgery scheduled in [address] Choi. He is tolerating p.o., was given water to hydrate and tolerated this well. He does not have any leukocytosis on his lab work, sodium was 135, he was asymptomatic from this from a neuro changes standpoint, BNP was elevated to 1600 without any priors to compare to, patient did not have any significant dyspnea or orthopnea complaints. They told me that he has a history of CHF and that he takes a water pill. Urine shows 3+ leukocyte esterase with few bacteria it was cultured and it is pending. His COVID test today is negative. This is most likely UTI, he does not have any back pain or CVA tenderness on exam, he is afebrile, without any nausea vomiting. Patient was given Bactrim in the emergency department, tolerated p.o., was given strict return precautions for any worsening of his symptoms. Patient states understanding. He was given prescription for Voltaren gel for his knees, encouraged to take Tylenol for this and ice them as necessary. He is encouraged to follow-up with his primary doctor and go to his appointment and surgery as scheduled. He did not have any abdominal pain to palpation or any exquisite flank or abdominal pain. Patient is appropriate and amenable to discharge home. Vital signs are stable on repeat examination is unremarkable. Patient has been informed of results. Patient has been given strict return to ER precautions for any new or worsening symptoms. Patient understands to follow up closely with outpatient providers as instructed. Patient understands plan and agrees to discharge home. All questions and concerns answered at this time. <Ronit Newman DO - Last Filed: 11/22/21 19:38> Lab Data Labs: Lab Results 11/21/21 11/21/21 11/21/21 Range/Units 18:00 18:00 18:00 WBC 8.0 (4.5-11.0) X10^3/uL RBC 4.41 L (4.5-5.9) X10^6/uL Hgb 13.7 (13.5-17.5) g/dL Hct 40.0 L (41-53) % MCV 90.7 (80-100) fL MCH 31.2 (26-34) PG MCHC 34.3 (30-36) % RDW 13.9 (11.6-14.8) % Plt Count 199 (150-400) X10^3/uL Neut % (Auto) 66.8 (50-75) % Lymph % (Auto) 18.2 L (25-40) % [place] % (Auto) 13.1 (3-14) % Eos % (Auto) 1.4 L (2-4) % Baso % (Auto) 0.5 (0-2) % Neut # (Auto) 5300 (7326-7780) /uL Lymph # (Auto) 1500 (2962-4890) /uL [place] # (Auto) 1000 H (0-900) /uL Eos # (Auto) 100 (0-450) /uL Baso # (Auto) 0 (0-100) /uL Sodium 135 L (137-145) mmol/L Potassium 4.0 (3.4-5.1) mmol/L Chloride 101 (98-107) mmol/L Carbon Dioxide 25 (22-32) mmol/L BUN 22 H (9-20) mg/dL Creatinine 1.05 (0.66-1.25) mg/dL Estimated GFR > 60 (>60) mL/min BUN/Creatinine Ratio 21.0 (6-22) Glucose 88 (80-110) mg/dL Calcium 9.4 (8.4-10.2) mg/dL Total Bilirubin 1.0 (0.2-1.3) mg/dL AST 25 (17-59) IU/L ALT 20 (<50) IU/L Alkaline Phosphatase 36 L (38-126) U/L NT-Pro-B Natriuret Pep 1600 H (<450) pg/mL Total Protein 7.4 (6.3-8.2) g/dL Albumin 4.5 (3.5-5.0) g/dL Globulin 2.9 (1.7-4.1) g/dL Albumin/Globulin Ratio 1.6 (1.0-2.8) Procalcitonin 0.05 (<0.5) ng/mL Urine Color Urine Appearance Urine pH (4.5-8.0) Ur Specific [place] (1.000-1.035) Urine Protein (Negative) Urine Glucose (UA) (Negative) g/dL Urine Ketones (NEGATIVE) Urine Occult Blood (Negative) Urine Nitrate (Negative) Urine Bilirubin (NEGATIVE) Urine Urobilinogen (0.2) E.U./dL Ur Leukocyte Esterase (NEGATIVE) Urine RBC (0-5/HPF) Urine WBC (0-5/HPF) Ur Squamous Epith Cells (0-5/HPF) Urine Bacteria (None) Ur Culture Indicated? SARS-CoV-2 (PCR) (Negative) 11/21/21 11/21/21 Range/Units 18:04 18:04 WBC (4.5-11.0) X10^3/uL RBC (4.5-5.9) X10^6/uL Hgb (13.5-17.5) g/dL Hct (41-53) % MCV (80-100) fL MCH (26-34) PG MCHC (30-36) % RDW (11.6-14.8) % Plt Count (150-400) X10^3/uL Neut % (Auto) (50-75) % Lymph % (Auto) (25-40) % [place] % (Auto) (3-14) % Eos % (Auto) (2-4) % Baso % (Auto) (0-2) % Neut # (Auto) (0343-4032) /uL Lymph # (Auto) (8618-7191) /uL [place] # (Auto) (0-900) /uL Eos # (Auto) (0-450) /uL Baso # (Auto) (0-100) /uL Sodium (137-145) mmol/L Potassium (3.4-5.1) mmol/L Chloride (98-107) mmol/L Carbon Dioxide (22-32) mmol/L BUN (9-20) mg/dL Creatinine (0.66-1.25) mg/dL Estimated GFR (>60) mL/min BUN/Creatinine Ratio (6-22) Glucose (80-110) mg/dL Calcium (8.4-10.2) mg/dL Total Bilirubin (0.2-1.3) mg/dL AST (17-59) IU/L ALT (<50) IU/L Alkaline Phosphatase (38-126) U/L NT-Pro-B Natriuret Pep (<450) pg/mL Total Protein (6.3-8.2) g/dL Albumin (3.5-5.0) g/dL Globulin (1.7-4.1) g/dL Albumin/Globulin Ratio (1.0-2.8) Procalcitonin (<0.5) ng/mL Urine Color Yellow Urine Appearance Slightly cloudy Urine pH 6.0 (4.5-8.0) Ur Specific [place] <=1.005 (1.000-1.035) Urine Protein Negative (Negative) Urine Glucose (UA) Negative (Negative) g/dL Urine Ketones Negative (NEGATIVE) Urine Occult Blood Trace-lysed (Negative) Urine Nitrate Negative (Negative) Urine Bilirubin Negative (NEGATIVE) Urine Urobilinogen 0.2 (0.2) E.U./dL Ur Leukocyte Esterase 3+ H (NEGATIVE) Urine RBC 0-1/hpf (0-5/HPF) Urine WBC 10-30/hpf H (0-5/HPF) Ur Squamous Epith Cells 0-1 /hpf (0-5/HPF) Urine Bacteria Few (2-10) H (None) Ur Culture Indicated? Specimen cultured SARS-CoV-2 (PCR) Negative (Negative) Discharge Plan Departure Patient Disposition: Home Clinical Impression: Acute UTI Instructions: Urinary Tract Infection Activity Restrictions/Additional Instructions: *You have been diagnosed with a urinary tract infection. Your COVID test is negative today, please follow-up with your primary doctor and proceed with her surgery as directed, it is okay to take this antibiotic your taking just let them know that your on it. Please take this antibiotic twice a day for the next 5 days, please try and stay hydrated with plenty of water and electrolyte drinks. Please return to the emergency department if you have any worsening of your symptoms. Everything else on your lab work looked great, your BNP is 1600 today I did not have any others to compare this to but if your provider is wondering, that is what it is. They will get more information from the echo when you have that. Please use the Voltaren gel on your knees for your knee pain, take Tylenol in addition to this if you needed. Thank you for trusting us with your care, sorry for your wait time today I hope that you feel better soon and have a good surgery. *What to do: *Please continue to take your regular medications as directed. [ x] New medication prescriptions sent to your pharmacy: [ [facility]] [ ] New medication written as a paper prescription [ ] No new medications given *Please follow up with your primary care provider in 2-3 days, call for an appointment. Let them know you were seen in the Emergency Department and that we asked that you be seen for follow-up. We will electronically transmit a record of today's note if your PCP is in our system *If you do not have a primary care provider please contact [phone] to establish care with one of the [facility] primary care providers. *Return to Emergency Department if you should have any new, worsening or concerning symptoms, such as [fever greater than 101F, chills, worsening pain, persistent vomiting or other bothersome symptoms] Prescriptions: New sulfamethoxazole-trimethoprim [Bactrim DS] 800-160 mg tablet 1 tab PO BID 5 Days Qty: 10 0RF diclofenac sodium [Voltaren Arthritis Pain] 1 % gel 2 g topical QID PRN (Reason: pain ) Qty: 100 0RF Rx Instructions: apply to single elbow, wrist or hand; for hand includes palm/fingers/back of hand No Action Xarelto 20 mg Tablet 20 mg PO DAILY 0RF Rx Instructions: must administer with evening meal Entresto 24-26 mg Tablet 1 tab PO BID 0RF metoprolol succinate 25 mg Tablet Extended Release 24 Hr 25 mg PO BID 0RF Referrals: Carla Quiros MD [Primary Care Provider] - Luis A Choi MD [Physician] - <Ronit Newman DO - Last Filed: 11/22/21 19:38> Cosign ED Attending Cosignature Attestation: I was immediately available in the department for consultation. Documentation has been reviewed.
== END 2021-11-21 19:00 | disposition home or self-care (01) ==
PROVIDERS: Emergency Provider Nurse Practitioner Critical Care Medicine; PCP Family Medicine
DX: N30.90 Cystitis, unspecified without hematuria (principal); B95.1 Streptococcus, group B, as the cause of diseases classified elsewhere; M25.561 Pain in right knee; I48.91 Unspecified atrial fibrillation; Z79.01 Long term (current) use of anticoagulants; Z20.822 Contact with and (suspected) exposure to COVID-19
CPT/HCPCS: 73562; 80053; 81001; 83880; 84145; 85025; 87077; 87086; 87147; 87635; 93005; 99283; 99284; C9803

== ENCOUNTER 2021-11-23 12:58 | Day surgery (SDC) | payer MEDICARE, OTHER, SELFPAY ==
[2021-11-22 08:30] VITALS: BMI 27.6
[2021-11-23 13:29] VITALS: BP 127/77; PULSE 110; RESP 16; TEMP 36.1; O2SAT 97; BMI 27.6
[2021-11-23] MEDS: LACTATED RINGERS 1,000 ML 100 ML IV ×2 (13:50→17:48)
--- NOTE | 2021-11-23 14:32 | PM.PREOP ---
Pre-operative Note Interval Note History & Physical reviewed/Exam performed by Physician: Yes Changes to H&P: No
[2021-11-23] MEDS: CEFAZOLIN 2 GM/20 ML SYRINGE IV (16:26)
--- NOTE | 2021-11-23 16:39 | SUR.OPER ---
Supine on padded OR bed, head on 3 pillows per patient request, arms secured on padded arm boards at <90 degrees abduction, legs uncrossed, safety belt at thigh, tape over blanket over lower legs. Inside Meter Tester on foot of bed. Gel pad under heals
[2021-11-23] MEDS: BUPIVACAINE 0.25% (PF) VIAL 30 ML INJ (16:51)
--- NOTE | 2021-11-23 17:22 | P.OP_ITS ---
Operative Date/Time/Diagnoses Date of procedure: 11/23/21 Time of procedure: 17:22 Pre-op diagnosis: Left inguinal hernia Post-op diagnosis: same Procedure & Clinicians Procedure: Open left inguinal hernia repair with mesh Same procedure as scheduled: Yes Indications: Reducible symptomatic left inguinal hernia Surgeon: Luis A hCoi Anesthesia Type: General Operative Notes Findings: Directed and indirect inguinal hernia Estimated Blood Loss (mL): 20 Procedure in detail: The patient was placed supine on the table and bilateral lower extremity compression devices were applied. Anesthesia was induced they were intubated with an LMA and received Ancef. A time-out was performed. They were prepped and draped in sterile fashion. The right external inguinal ring and the anterior superior iliac crest were identified and marked. 1 finger breath above the inguinal ligament the skin was infiltrated with 0.25% bupivacaine. The skin incision was made here and the subcutaneous tissues were divided with electrocautery exposing the external oblique aponeurosis which was then opened along the direction of its fibers. Using blunt dissection the internal oblique aporneurosis was from the external oblique upper leaflet. The cord was carefully dissected away from the inguinal canal adjacent to the pubic tubercle. The cord including the vas deferens, testicular bloody supply, ilioguinal and genital nerve were encircled with a [place] drain. A direct floor defect was identified and it was reduced into the abdomen and the internal oblique aporneuorsis was approximated to the inguinal ligament with Ethibond suture to reapproximate the floor. The cremasteric fibers surrounding the cord were divided using electrocautery adjacent to the internal ring.. The vas deferens and the testicular vessels were preserved and protected. There was a moderate-size indirect hernia on the anterior medial aspect of the cord which was skeletonized away from the vas deferens and testicular blood supply. The indirect hernia was skeletonized back to the internal ring and reduced spontaneously into the abdomen. A plug of mesh was then placed into the internal ring and secured to the surrounding fascia as the indirect defect was quite large. I Selected a 7x 15 cm lightweight Pro Loop hernia mesh. The inferior medial aspect of the mesh was anchored to insertion of the rectus muscle to the pubic tubercle such that there was approximately 2 cm of tubercle overlap with Ethibond and then was run continuously along the inferior edge of the mesh to the shelving edge of the inguinal ligament. Interrupted 3 0 Vicryl suture was used to anchor the superior aspect of the mesh to the conjoined tendon in several places. The tails were then reapproximated loosely around the spermatic cord. The tails of the mesh were then tucked under the external oblique aponeurosis. The repair was checked for hemostasis. The wound was irrigated with sterile saline. The external oblique aponeurosis was reapproximated in a running fashion using 3 0 Vicryl. The subcutaneous tissues were reapproximated with 3 0 Vicryl skin closed with 4 0 Monocryl followed by the application of Dermabond. At the end of the operation I ensured that both testicles were within the scrotum. The sponge instrument count at the end operation was correct. The patient emerged from anesthesia was extubated and transferred to the postoperative care unit in stable condition. A total of 30 ml of of 0.25% bupivicaine was used to infiltrate the skin. Complications: none Post-operative Condition: stable Disposition: same day surgery
[2021-11-23 17:28] VITALS: BP 132/82; PULSE 98; RESP 15; TEMP 36.9; O2SAT 97
[2021-11-23 17:33] VITALS: BP 127/73; PULSE 101; RESP 12; O2SAT 98
[2021-11-23 17:39] VITALS: BP 117/81; PULSE 98; RESP 11; O2SAT 99
[2021-11-23 17:50] VITALS: BP 106/85; PULSE 91; RESP 12; O2SAT 98
[2021-11-23 17:52] VITALS: BP 127/79; PULSE 104; RESP 13; O2SAT 98
== END 2021-11-23 18:10 | disposition home or self-care (01) ==
PROVIDERS: PCP Family Medicine; Referring Provider Surgery; Visit Provider Surgery
PROC: (CPT 49505; principal; 2021-11-23 14:30)
DX: K40.90 Unilateral inguinal hernia, without obstruction or gangrene, not specified as recurrent (principal)
CPT/HCPCS: 49505; 82962; J0690; J1100; J2405; J2704; J3010

== ENCOUNTER → 2021-12-06 11:05 | Outpatient (CLI) | payer MEDICARE, OTHER, SELFPAY ==
[2021-12-06 12:04] LABS: Appearance Urine UA CLEAR; Bilirubin Urine UA NEGATIVE (NEGATIVE); Color Urine UA YELLOW; Glucose Urine UA NEGATIVE (Negative); Ketones Urine UA NEGATIVE (NEGATIVE); Leukocyte Esterase Urine UA 2+ (NEGATIVE); Nitrite Urine UA NEGATIVE (Negative); Occult Blood Urine UA TRACE-INTACT (Negative); Protein Urine UA NEGATIVE (Negative); Specific Gravity Urine UA 1.015 (1.000-1.035); Urobilinogen Urine UA 0.2 E.U./dL (0.2)
[2021-12-06 12:28] LABS: Bacteria Urine Moderate (10-30); RBC Urine 0-1/HPF (0-5/HPF); Squamous Epithelial Cell Urine 1-5 /HPF (0-5/HPF); WBC Urine 10-30/HPF (0-5/HPF)
== END ==
PROVIDERS: PCP Family Medicine; Referring Provider Family Medicine; Visit Provider Family Medicine
DX: R35.0 Frequency of micturition (principal)
CPT/HCPCS: 81001; 87077; 87086; 87147

== ENCOUNTER → 2021-12-31 12:02 | Outpatient (CLI) | payer MEDICARE, OTHER, SELFPAY | PROVIDERS: PCP Family Medicine; Referring Provider Family Medicine; Visit Provider Family Medicine | DX: N39.0 Urinary tract infection, site not specified (principal) | CPT/HCPCS: 87077; 87086; 87186 ==

== ENCOUNTER → 2022-01-06 11:06 | Outpatient (CLI) | payer MEDICARE, OTHER, SELFPAY | PROVIDERS: PCP Family Medicine; Referring Provider Family Medicine; Visit Provider Family Medicine | DX: M17.11 Unilateral primary osteoarthritis, right knee (principal); Z53.20 Procedure and treatment not carried out because of patient's decision for unspecified reasons ==

== ENCOUNTER → 2022-01-10 16:07 | Outpatient (CLI) | payer MEDICARE, OTHER, SELFPAY ==
--- NOTE | 2022-01-10 | DI.MRI.S_ITS ---
PROCEDURE: MR KNEE RT WO CON INDICATIONS: pain in right knee TECHNIQUE: Noncontrast sagittal PD fast spin echo and T2 fast spin echo with fat saturation, sagittal 3-D FLASH with fat saturation; coronal T1 spin echo and PD fast spin echo with fat saturation, and axial PD fast spin echo with fat saturation through the knee. COMPARISON: [facility], CR, XR KNEE RT 3V, 11/21/2021, 14:20. FINDINGS: Image quality: Excellent. Menisci: There is complex tear involving posterior horn and body of the medial meniscus. There is lateral meniscal extrusion. Large horizontal tear is seen involving the anterior horn, body and posterior horn of the lateral meniscus. There are meniscal cysts adjacent to the body and posterior horn of the lateral meniscus. Cruciate ligaments: The anterior cruciate ligament appear thickened irregular with heterogeneous signal, consistent with mucoid degeneration. The posterior cruciate ligament is abnormal with linear hyperintense signal likely sequela of chronic partial interstitial tear and associated degeneration. A cluster of cysts are seen adjacent to the proximal posterior cruciate ligament. Medial structures: The medial collateral ligament appears intact. The semimembranosus tendon insertions and meniscocapsular junction appear intact. Visualized portions of the pes anserinus tendons appear normal. No abnormal bursal fluid. Lateral structures: The lateral collateral ligament, long and short heads of the biceps femoris tendon appear intact. The popliteus tendon appears normal. Iliotibial band appears normal. Anterior structures: There is partial tear and moderate quadriceps tendinitis at the patellar insertion. Mild tendinosis of patellar tendon without tendon tear. Patellar alignment is normal. No femoral trochlear dysplasia or ventral trochlear prominence. No edema in the infrapatellar fat pad. Bones and cartilage: No bone marrow contusions or fractures. Severe chondromalacia patella. There is cartilage thinning and fissuring of the medial and lateral femorotibial compartments. Joint space: There is moderate knee joint effusion. No Leo's cyst. Normal appearing synovial plicae are incidentally noted. IMPRESSION: 1. Complex tear of the posterior horn and body of the medial meniscus. 2. Large horizontal tear of the lateral meniscus involving the entire lateral meniscus with associated meniscal cysts. 3. Mucoid degeneration of ACL. 4. Abnormal appearance of PCL, likely sequela of chronic partial tear/degeneration. 5. Partial tear of quadriceps tendon and moderate quadriceps tendinitis at the patella insertion. 6. Severe chondromalacia patella. 7. Moderate knee joint effusion. Dictated by: Zaida Cope M.D. on 01/10/2022 at 17:39 Approved by: Zaida Cope M.D. on 01/12/2022 at 10:23
== END ==
PROVIDERS: PCP Family Medicine; Referring Provider Family Medicine; Visit Provider Family Medicine
DX: S83.231A Complex tear of medial meniscus, current injury, right knee, initial encounter (principal); S83.281A Other tear of lateral meniscus, current injury, right knee, initial encounter; S76.111A Strain of right quadriceps muscle, fascia and tendon, initial encounter; M76.51 Patellar tendinitis, right knee; M22.41 Chondromalacia patellae, right knee; M25.461 Effusion, right knee; M25.561 Pain in right knee
CPT/HCPCS: 73721

== ENCOUNTER → 2022-01-11 10:06 | Outpatient (CLI) | payer MEDICARE, OTHER, SELFPAY ==
--- NOTE | 2022-01-11 | DI.US.S_ITS ---
PROCEDURE: US RENAL COMPLETE INDICATIONS: URINARY TRACT INFECTION TECHNIQUE: Real-time scanning was performed of the kidneys and bladder, with image documentation. COMPARISON: None. FINDINGS: Kidneys: Kidneys are normal in size. Right kidney measures 11.2 cm long; left kidney measures 11.4 cm long. Right renal cortical thickness is 1.7 cm; left renal cortical thickness is 2.2 cm. Renal cortical echotexture is normal. No hydronephrosis or nephrolithiasis. No suspicious solid mass lesions. A 3 cm simple appearing left renal cyst can be seen medially. Bladder: Pre-void bladder volume is 291 mL. The patient attempted to void and the bladder is remeasured at 342 cc. Pre-void images demonstrate no intraluminal masses or stones. On pre-void images, neither of the ureteral jets are noted with color Doppler interrogation. (Of note, ureteral jets may not be detectable in up to 25% of cases due to insufficient differences in specific gravity between ureteral and bladder urine). Miscellaneous: No free pelvic fluid. IMPRESSION: Urinary retention, with the patient unable to void, despite a prevoid bladder volume measurement nearly 300 cc. 3 cm simple appearing left renal cyst incidentally noted. Dictated by: Barber Ellington M.D. on 01/11/2022 at 10:16 Approved by: Barber Ellington M.D. on 01/11/2022 at 10:17
== END ==
PROVIDERS: PCP Family Medicine; Referring Provider Family Medicine; Visit Provider Family Medicine
DX: N39.0 Urinary tract infection, site not specified (principal); R33.9 Retention of urine, unspecified; Q61.01 Congenital single renal cyst
CPT/HCPCS: 76770

== ENCOUNTER → 2022-01-13 15:58 | Outpatient (CLI) | payer MEDICARE, OTHER, SELFPAY ==
--- NOTE | 2022-01-13 | DI.ECHO.S_ITS ---
[facility] +---------+ : : [address] : [place] [address] : : : : [id number] : : : : Phone: [phone]+ Echocardiogram Report + + :Name: SUBHA COLINDRES Study Date: 01/13/2022 Height: 78 in : :[facility] ReadingLocation: Weight: 245 lb : : Gender: Male BSA: 2.5 m2 : :: 1945 Age: 76 yrs BP: 135/78 mmHg: :Reason For Study: Cardiomyopathy, Dilated : :Ordering Physician: CYRUS, : :KAITLYNN Performed By: Naresh Sepulveda : :Referring: KAITLYNN BRIDGES : + + Interpretation Summary There is mild concentric left ventricular hypertrophy. The ejection fraction is estimated to be 55-60%. The right ventricle is mildly dilated. There is mild mitral regurgitation. There is mild aortic valve sclerosis. There is mild tricuspid regurgitation. The right ventricular systolic pressure is estimated to be at least 36 mmHg based on an estimated right atrial pressure of 8 mm Hg. Procedure: A two-dimensional transthoracic echocardiogram with color flow and Doppler was performed. The study quality was technically adequate. There is no prior echocardiogram noted for this patient. Left Ventricle: The left ventricle is normal in size. There is mild concentric left ventricular hypertrophy. Left ventricular systolic function is normal. The ejection fraction is estimated to be 55-60%. There are no focal wall motion abnormalities. Diastolic function could not be accurately assessed due to atrial fibrillation. Right Ventricle: The right ventricle is mildly dilated. The right ventricular systolic function is normal. Atria: Both atria are mildly dilated. The interatrial septum grossly appears intact with no obvious evidence for an atrial septal defect. Mitral Valve: There is mild mitral annular calcification. There is mild mitral regurgitation. Aortic Valve: There is mild aortic valve sclerosis. No aortic regurgitation is present. Tricuspid Valve: The tricuspid valve is normal in structure and function. There is mild tricuspid regurgitation. The right ventricular systolic pressure is estimated to be at least 36 mmHg based on an estimated right atrial pressure of 8 mm Hg. Pulmonic Valve: The pulmonic valve is not well seen, but is grossly normal. There is trace pulmonic regurgitation. Great Vessels: The aortic root is normal size. The ascending aorta is mildly enlarged. The IVC is dilated (diameter is greater than 2.1 cm) yet it collapses greater than 50% with a sniff. This suggests a right atrial pressure of 8 mm Hg. Pericardium/ Pleura There is no pericardial effusion. There is no pleural effusion. MMode/2D Measurements & Calculations LVIDd: 4.4 cm LVOT diam: 2.4 cm LVIDs: 3.1 cm Ao root diam: 3.9 cm FS: 30.1 % asc Aorta Diam: 3.8 cm IVSd: 1.2 cm LVPWd: 1.1 cm LV graham. diameter/BSA (cm/m^2): 1.8 LV sys. diameter/BSA (cm/m^2): 1.2 LA A2 area: 30.2 cm2 RA long axis: 6.9 cm LA A4 area: 28.6 cm2 RA area: 25.2 cm2 LA length (vol): 7.3 cm RA vol: 79.0 ml LA vol: 100.2 ml RA : 32.1 ml/m2 LA vol index: 40.7 ml/m2 IVC diam: 2.6 cm TAPSE: 2.7 cm Doppler Measurements & Calculations Ao V2 max: 130.5 cm/sec LVOT Max Ace: 88.1 cm/sec Ao V2 mean: 96.2 cm/sec LV V1 max P.1 mmHg Ao max P.8 mmHg LV V1 VTI: 16.0 cm Ao mean P.0 mmHg DANIEL(I,D): 3.2 cm2 Ao V2 VTI: 22.9 cm DANIEL(V,D): 3.1 cm2 sev ratio: 0.70 DANIEL indexed to BSA (cm^2/m^2): 1.3 TR max ace: 263.7 cm/sec SV(LVOT): 74.3 ml TR max P.8 mmHg Reading Physician:10:15 AM
== END ==
PROVIDERS: PCP Family Medicine; Referring Provider Family Medicine; Visit Provider Family Medicine
DX: I42.0 Dilated cardiomyopathy (principal); I08.3 Combined rheumatic disorders of mitral, aortic and tricuspid valves; I77.89 Other specified disorders of arteries and arterioles
CPT/HCPCS: 93306

== ENCOUNTER → 2022-07-12 11:04 | Outpatient (CLI) | payer MEDICARE, OTHER, SELFPAY ==
[2022-07-12 12:22] LABS: Add Manual Diff / Slide Review NO; Basophils Absolute Auto 0 /uL (0-100); Basophils Percent Auto 0.6 % (0-2); Eosinophils Absolute Auto 100 /uL (0-450); Eosinophils Percent Auto 1.8 % (2-4); Hematocrit 35.8 % (41-53); Lymphocytes Absolute Auto 1400 /uL (1100-4500); Lymphocytes Percent Auto 25.7 % (25-40); Mean Corpuscular HGB Conc 33.4 % (30-36); Mean Corpuscular Hemoglobin 29.1 PG (26-34); Monocytes Absolute Auto 600 /uL (0-900); Neutrophils Absolute Auto 3200 /uL (1500-7000); Neutrophils Percent Auto 59.9 % (50-75); Platelet Count 241 X10^3/uL (150-400); Red Blood Cell Count 4.11 X10^6/uL (4.5-5.9); Red Cell Distribution Width 14.8 % (11.6-14.8); White Blood Cell Count 5.3 X10^3/uL (4.5-11.0)
[2022-07-12 13:14] LABS: Thyroid Stimulating Hormone 0.808 uIU/mL (0.47-4.68)
[2022-07-12 23:50] LABS: Alanine Aminotransferase 17 IU/L (<50); Albumin 3.9 g/dL (3.5-5.0); Albumin Globulin Ratio 1.4 (1.0-2.8); Alkaline Phosphatase 57 U/L (38-126); Aspartate Aminotransferase 17 IU/L (17-59); BUN Creatinine Ratio 18.9 (6-22); Bilirubin Total 0.7 mg/dL (0.2-1.3); Blood Urea Nitrogen 20 mg/dL (9-20); Calcium 9.6 mg/dL (8.4-10.2); Carbon Dioxide 27 mmol/L (22-32); Chloride 102 mmol/L (98-107); Cholesterol 173 mg/dL (140-199); Estimated Glomerular Filt Rate > 60 mL/min (>60); Globulin 2.8 g/dL (1.7-4.1); Glucose 107 mg/dL (80-110); HDL Cholesterol 57 mg/dL (40-60); HEMOLYSIS < 15 (0-50); LDL Cholesterol Calculated 109 mg/dL (<100); Potassium 4.4 mmol/L (3.4-5.1); Sodium 138 mmol/L (137-145); Total Protein 6.7 g/dL (6.3-8.2); Triglycerides 35 mg/dL (35-150)
[2022-07-13 00:19] LABS: Prostate Specific Antigen 2.57 ng/mL (0.10-4.00)
== END ==
PROVIDERS: PCP Family Medicine; Referring Provider Family Medicine; Visit Provider Family Medicine
DX: I42.8 Other cardiomyopathies (principal); I48.19 Other persistent atrial fibrillation; I50.22 Chronic systolic (congestive) heart failure; N40.1 Benign prostatic hyperplasia with lower urinary tract symptoms
CPT/HCPCS: 36415; 80053; 80061; 83735; 84153; 84443; 85025

== ENCOUNTER → 2022-08-01 15:37 | Outpatient (CLI) | payer MEDICARE, OTHER, SELFPAY ==
[2022-08-01 16:43] LABS: Add Manual Diff / Slide Review NO; Basophils Absolute Auto 100 /uL (0-100); Basophils Percent Auto 0.9 % (0-2); Eosinophils Absolute Auto 100 /uL (0-450); Eosinophils Percent Auto 1.5 % (2-4); Hematocrit 37.7 % (41-53); Hemoglobin 12.6 g/dL (13.5-17.5); Lymphocytes Absolute Auto 1900 /uL (1100-4500); Lymphocytes Percent Auto 27.1 % (25-40); Mean Corpuscular HGB Conc 33.5 % (30-36); Mean Corpuscular Hemoglobin 28.9 PG (26-34); Mean Corpuscular Volume 86.2 fL (80-100); Monocytes Absolute Auto 600 /uL (0-900); Monocytes Percent Auto 9.1 % (3-14); Neutrophils Absolute Auto 4400 /uL (1500-7000); Neutrophils Percent Auto 61.4 % (50-75); Platelet Count 308 X10^3/uL (150-400); Red Blood Cell Count 4.37 X10^6/uL (4.5-5.9); White Blood Cell Count 7.1 X10^3/uL (4.5-11.0)
[2022-08-01 17:02] LABS: Iron 93 ug/dL (49-181)
[2022-08-01 17:37] LABS: Ferritin 79 ng/mL (18-464)
[2022-08-01 18:09] LABS: Folate > 20.0 ng/mL (2.76-20.0); Vitamin B12 967 pg/mL (239-931)
== END ==
PROVIDERS: PCP Family Medicine; Referring Provider Family Medicine; Visit Provider Family Medicine
DX: D64.9 Anemia, unspecified (principal); D50.0 Iron deficiency anemia secondary to blood loss (chronic)
CPT/HCPCS: 36415; 82607; 82728; 82746; 83540; 85025

== ENCOUNTER → 2022-11-15 14:10 | Outpatient (CLI) | payer MEDICARE, OTHER, SELFPAY ==
[2022-11-15 15:30] LABS: Add Manual Diff / Slide Review NO; Basophils Absolute Auto 0 /uL (0-100); Basophils Percent Auto 0.6 % (0-2); Eosinophils Absolute Auto 100 /uL (0-450); Eosinophils Percent Auto 1.5 % (2-4); Hemoglobin 13.7 g/dL (13.5-17.5); Lymphocytes Absolute Auto 2400 /uL (1100-4500); Lymphocytes Percent Auto 30.6 % (25-40); Mean Corpuscular HGB Conc 34.3 % (30-36); Mean Corpuscular Hemoglobin 30.3 PG (26-34); Mean Corpuscular Volume 88.5 fL (80-100); Monocytes Absolute Auto 800 /uL (0-900); Monocytes Percent Auto 10.7 % (3-14); Neutrophils Absolute Auto 4400 /uL (1500-7000); Neutrophils Percent Auto 56.6 % (50-75); Platelet Count 231 X10^3/uL (150-400); Red Blood Cell Count 4.53 X10^6/uL (4.5-5.9); White Blood Cell Count 7.8 X10^3/uL (4.5-11.0)
[2022-11-15 15:55] LABS: Alanine Aminotransferase 24 IU/L (<50); Albumin 4.3 g/dL (3.5-5.0); Albumin Globulin Ratio 1.4 (1.0-2.8); Alkaline Phosphatase 41 U/L (38-126); Aspartate Aminotransferase 23 IU/L (17-59); BUN Creatinine Ratio 19.5 (6-22); Bilirubin Total 0.8 mg/dL (0.2-1.3); Blood Urea Nitrogen 26 mg/dL (9-20); Calcium 9.9 mg/dL (8.4-10.2); Carbon Dioxide 27 mmol/L (22-32); Chloride 101 mmol/L (98-107); Estimated Glomerular Filt Rate 55 mL/min (>60); Glucose 82 mg/dL (80-110); HEMOLYSIS < 15 (0-50); Potassium 4.3 mmol/L (3.4-5.1); Sodium 137 mmol/L (137-145); Total Protein 7.3 g/dL (6.3-8.2)
== END ==
PROVIDERS: PCP Family Medicine; Referring Provider Family Medicine; Visit Provider Family Medicine
DX: I48.20 Chronic atrial fibrillation, unspecified (principal); I50.22 Chronic systolic (congestive) heart failure
CPT/HCPCS: 36415; 80053; 85025

== ENCOUNTER → 2022-12-04 14:42 | Outpatient (CLI) | payer MEDICARE, OTHER, SELFPAY | PROVIDERS: PCP Family Medicine; Referring Provider Family Medicine; Visit Provider Family Medicine | DX: Z01.818 Encounter for other preprocedural examination (principal) | CPT/HCPCS: 93005 ==

== ENCOUNTER → 2023-02-27 17:07 | Outpatient (CLI) | payer MEDICARE, OTHER, SELFPAY ==
--- NOTE | 2023-02-27 17:09 | DI.RAD.S_ITS ---
PROCEDURE: XR TOE LT MIN 2V INDICATIONS: Left 3rd toe swelling TECHNIQUE: Frontal view of the foot and two views of the 3rd toe COMPARISON: None. FINDINGS: Bones: No fractures or dislocations. No suspicious bony lesions. Soft tissues: No suspicious soft tissue densities. IMPRESSION: No acute displaced fracture identified. If symptoms persist, follow-up radiographs and/or CT or MRI may be helpful for further evaluation. Dictated by: Billy Moreno M.D. on 02/27/2023 at 18:13 Approved by: Billy Moreno M.D. on 02/27/2023 at 18:16
== END ==
PROVIDERS: PCP Family Medicine; Referring Provider Physician Assistant; Visit Provider Physician Assistant
DX: M79.89 Other specified soft tissue disorders (principal)
CPT/HCPCS: 73660

== ENCOUNTER → 2023-07-23 09:41 | Outpatient (CLI) | payer MEDICARE, OTHER, SELFPAY ==
[2023-07-23 10:52] LABS: Add Manual Diff / Slide Review NO; Basophils Absolute Auto 0 /uL (0-100); Basophils Percent Auto 0.7 % (0-2); Eosinophils Absolute Auto 300 /uL (0-450); Eosinophils Percent Auto 4.9 % (2-4); Hematocrit 36.8 % (41-53); Hemoglobin 12.6 g/dL (13.5-17.5); Lymphocytes Absolute Auto 1500 /uL (1100-4500); Lymphocytes Percent Auto 29.5 % (25-40); Mean Corpuscular HGB Conc 34.3 % (30-36); Mean Corpuscular Hemoglobin 30.5 PG (26-34); Mean Corpuscular Volume 89.1 fL (80-100); Monocytes Absolute Auto 400 /uL (0-900); Monocytes Percent Auto 8.2 % (3-14); Neutrophils Absolute Auto 2900 /uL (1500-7000); Neutrophils Percent Auto 56.7 % (50-75); Platelet Count 237 X10^3/uL (150-400); Red Blood Cell Count 4.13 X10^6/uL (4.5-5.9); Red Cell Distribution Width 14.1 % (11.6-14.8); White Blood Cell Count 5.2 X10^3/uL (4.5-11.0)
[2023-07-23 11:06] LABS: Alanine Aminotransferase 23 IU/L (<50); Albumin 4.1 g/dL (3.5-5.0); Albumin Globulin Ratio 1.5 (1.0-2.8); Alkaline Phosphatase 53 U/L (38-126); Aspartate Aminotransferase 25 IU/L (17-59); BUN Creatinine Ratio 18.6 (6-22); Bilirubin Total 0.8 mg/dL (0.2-1.3); Blood Urea Nitrogen 21 mg/dL (9-20); Calcium 10.2 mg/dL (8.4-10.2); Carbon Dioxide 24 mmol/L (22-32); Chloride 103 mmol/L (98-107); Cholesterol 196 mg/dL (140-199); Estimated Glomerular Filt Rate > 60 mL/min (>60); Globulin 2.8 g/dL (1.7-4.1); Glucose 99 mg/dL (80-110); HDL Cholesterol 58 mg/dL (40-60); HEMOLYSIS < 15 (0-50); LDL Cholesterol Calculated 129 mg/dL (<100); Potassium 4.3 mmol/L (3.4-5.1); Sodium 134 mmol/L (137-145); Total Protein 6.9 g/dL (6.3-8.2); Triglycerides 46 mg/dL (35-150)
[2023-07-23 21:07] LABS: Prostate Specific Antigen 2.73 ng/mL (0.10-4.00)
== END ==
PROVIDERS: PCP Family Medicine; Referring Provider Specialist; Visit Provider Specialist
DX: N40.0 Benign prostatic hyperplasia without lower urinary tract symptoms (principal); D64.9 Anemia, unspecified; E78.00 Pure hypercholesterolemia, unspecified; R94.4 Abnormal results of kidney function studies
CPT/HCPCS: 36415; 80053; 80061; 84153; 85025

== ENCOUNTER → 2023-07-25 12:12 | Outpatient (CLI) | payer MEDICARE, OTHER, SELFPAY ==
[2023-07-25 15:54] LABS: Creatinine Urine Random 74.6 mg/dL
[2023-07-25 15:59] LABS: Microalbumin Urine Random < 0.6 mg/dL (0-1.6)
== END ==
PROVIDERS: PCP Family Medicine; Referring Provider Family Medicine; Visit Provider Family Medicine
DX: D64.9 Anemia, unspecified (principal); R94.4 Abnormal results of kidney function studies; E78.00 Pure hypercholesterolemia, unspecified
CPT/HCPCS: 82043; 82570

== ENCOUNTER → 2023-12-12 10:57 | Outpatient (CLI) | payer MEDICARE, OTHER, SELFPAY | LOC: LAB 10:59 | PROVIDERS: PCP Family Medicine; Referring Provider Nurse Practitioner; Visit Provider Nurse Practitioner | DX: I48.21 Permanent atrial fibrillation (principal); I49.5 Sick sinus syndrome; I25.10 Atherosclerotic heart disease of native coronary artery without angina pectoris | CPT/HCPCS: 36415; 83695 ==

== ENCOUNTER 2024-01-10 14:15 | Outpatient (RCR) | payer MEDICARE, OTHER, SELFPAY | END 2024-01-10 16:15 | LOC: CAR 14:15 | PROVIDERS: PCP Family Medicine; Referring Provider Internal Medicine; Visit Provider Internal Medicine | DX: Z95.5 Presence of coronary angioplasty implant and graft (principal) | CPT/HCPCS: 93798 ==